=== PATIENT | female | born 1980 | race Caucasian/White ===

== ENCOUNTER 2018-10-06 16:41 | Emergency (ER) | payer SELFPAY | END 2018-10-06 17:30 | disposition home or self-care (01) | LOC: ERS 16:41 | DX: J32.0 Chronic maxillary sinusitis (principal); B96.89 Other specified bacterial agents as the cause of diseases classified elsewhere; F17.200 Nicotine dependence, unspecified, uncomplicated; Z79.899 Other long term (current) drug therapy | CPT/HCPCS: 99281 ==

== ENCOUNTER 2019-01-09 21:55 | Emergency (ER) | payer SELFPAY | END 2019-01-09 22:16 | disposition home or self-care (01) | LOC: ERS 21:55 | DX: K52.9 Noninfective gastroenteritis and colitis, unspecified (principal); J45.909 Unspecified asthma, uncomplicated; F17.210 Nicotine dependence, cigarettes, uncomplicated | CPT/HCPCS: 99283 ==

== ENCOUNTER 2019-04-05 18:43 | Emergency (ER) | payer SELFPAY | END 2019-04-05 19:45 | disposition home or self-care (01) | LOC: ERS 18:43 | DX: L02.414 Cutaneous abscess of left upper limb (principal); J45.909 Unspecified asthma, uncomplicated; F17.210 Nicotine dependence, cigarettes, uncomplicated; Z79.51 Long term (current) use of inhaled steroids | CPT/HCPCS: 10060 ==